=== PATIENT | female | born 1930 | race Caucasian/White ===

== ENCOUNTER 2018-01-05 13:24 | Inpatient (IN) | payer OTHER, BC ==
[~2018-01-05] VITALS: Ht 154.9 cm; Wt 41.5 kg
[2018-01-05 14:01] LABS: HEMATOCRIT 31.8 % (36.0-46.0); HEMOGLOBIN 10.5 G/DL (11.9-15.5); MCH 37.6 PG (29.0-34.0); PLATELET COUNT 165 K/uL (156-360); RBC DIS.WIDTH-CV 15.1 % (11.8-14.6); RBC DIS.WIDTH-SD 63.5 % (39-53); RED BLOOD COUNT 2.79 M/uL (3.80-5.20); WHITE BLOOD COUNT 11.9 K/uL (4.1-10.2)
[2018-01-05 14:07] LABS: INTER. NORMALIZED RATIO 0.9
[2018-01-05 14:09] LABS: CHLORIDE 101 mEq/L (99-109); POTASSIUM 5.1 mEq/L (3.7-5.4); SODIUM 139 mEq/L (136-147)
[2018-01-05 14:10] LABS: PTT 22.5 SEC (25-37)
[2018-01-05 14:11] LABS: GLUCOSE 223 mg/dL (70-99)
[2018-01-05 14:15] LABS: CREATININE 5.5 mg/dL (0.6-1.3); GFR ESTIMATE (CALCULATED) 8 mL/min/
[2018-01-05 14:16] LABS: UREA NITROGEN (BUN) 38 mg/dL (9-23)
[2018-01-05 14:21] LABS: TROP-I INTERPRETATION NEGATIVE; TROPONIN-I 0.05 ng/mL (0.0-0.30)
[2018-01-05 14:54] LABS: PLAT.SUFFICIENCY ADEQUATE
[2018-01-05] MEDS ORDERED: ISOSORBIDE DINI20 MG PO (16:08)
[2018-01-05] MEDS ORDERED: PROTONIX40 MG PO (16:09)
[2018-01-05] MEDS ORDERED: BUMETANIDE2 MG PO (16:09)
[2018-01-05] MEDS ORDERED: CARVEDILOL6.25 MG PO (16:09)
[2018-01-05] MEDS ORDERED: APRESOLINE50 MG PO (16:09)
[2018-01-05] MEDS ORDERED: CALCIUM ACETAT667 MG PO (16:10)
[2018-01-05] MEDS ORDERED: IRON325 M1 PO (16:10)
[2018-01-05] MEDS ORDERED: PRAVACHOL80 MG PO (16:10)
[2018-01-05] MEDS ORDERED: DIALYVITE TABL1 EACH PO (16:10)
[2018-01-05] MEDS ORDERED: MIRALAX17 GM PO (16:10)
[2018-01-05] MEDS ORDERED: CYANOCOBALAM1000 MCG PO (16:11)
[2018-01-05] MEDS ORDERED: ADULT ASPIRIN R81 MG PO (16:11)
[2018-01-05] MEDS ORDERED: VITAMIN D32000 UNI1 PO (16:11)
[2018-01-05] MEDS ORDERED: SENNA8.6 MG PO (16:11)
[2018-01-05] MEDS ORDERED: BUTRANS1 EAC1 TD (16:12)
[2018-01-05] MEDS ORDERED: ARANESP60 MCG/0.3 SC (16:13)
[2018-01-05] MEDS ORDERED: DULCOLAX5 MG PO (16:13)
[2018-01-05] MEDS ORDERED: COMPAZINE10 MG PO (16:13)
[2018-01-05] MEDS ORDERED: FLONASE16 G1 BOTH NARES (16:13)
[2018-01-05] MEDS ORDERED: NITROSTAT0.4 MG SL (16:13)
[2018-01-05 20:46] LABS: TROP-I INTERPRETATION NEGATIVE
[2018-01-05 21:15] VITALS: BP 111/53
[2018-01-06 00:18] VITALS: BP 146/65
[2018-01-06 02:33] LABS: HEMATOCRIT 26.9 % (36.0-46.0); HEMOGLOBIN 8.8 G/DL (11.9-15.5); MCH 36.7 PG (29.0-34.0); MCHC 32.7 G/DL (30.0-36.0); MCV 112.1 FL (83-99); PLATELET COUNT 124 K/uL (156-360); RBC DIS.WIDTH-SD 61.8 % (39-53); WHITE BLOOD COUNT 7.7 K/uL (4.1-10.2)
[2018-01-06 02:43] LABS: CHLORIDE 103 mEq/L (99-109); SODIUM 143 mEq/L (136-147)
[2018-01-06 02:45] LABS: GLUCOSE 85 mg/dL (70-99)
[2018-01-06 02:49] LABS: GFR ESTIMATE (CALCULATED) 14 mL/min/
[2018-01-06 02:50] LABS: UREA NITROGEN (BUN) 20 mg/dL (9-23)
[2018-01-06 02:51] LABS: CREATININE 3.3 mg/dL (0.6-1.3)
[2018-01-06 02:58] LABS: TROP-I INTERPRETATION INDETERMINATE; TROPONIN-I 0.46 ng/mL (0.0-0.30)
[2018-01-06 03:57] VITALS: BP 135/61
[2018-01-06 07:11] VITALS: BP 164/66
[2018-01-06 11:47] LABS: HEPATITIS B SURFACE ANTIGEN Nonreactive
[2018-01-06 11:48] LABS: HEPATITIS B SURFACE ANTIBODY Nonreactive
[2018-01-06 12:11] LABS: STOOL OCCULT BLD 1ST SPECIMEN ND
[2018-01-06 13:49] LABS: TROP-I INTERPRETATION INDETERMINATE; TROPONIN-I 0.37 ng/mL (0.0-0.30)
[2018-01-06 15:34] VITALS: BP 107/54
[2018-01-06 19:51] VITALS: BP 144/58
[2018-01-06 23:13] VITALS: BP 115/54
[2018-01-07 02:58] VITALS: BP 118/58
[2018-01-07 05:55] LABS: MCH 37.7 PG (29.0-34.0); MCHC 33.3 G/DL (30.0-36.0); PLATELET COUNT 134 K/uL (156-360); RBC DIS.WIDTH-CV 14.9 % (11.8-14.6); RBC DIS.WIDTH-SD 62.5 % (39-53); RED BLOOD COUNT 2.39 M/uL (3.80-5.20); WHITE BLOOD COUNT 7.7 K/uL (4.1-10.2)
[2018-01-07 06:13] LABS: CHLORIDE 97 MEQ/L (99-109); CREATININE 3.2 MG/DL (0.6-1.3); GFR ESTIMATE (CALCULATED) 14 mL/min/; GLUCOSE 91 mg/dL (70-99); POTASSIUM 3.9 MEQ/L (3.7-5.4); SODIUM 139 MEQ/L (136-147); UREA NITROGEN (BUN) 22 mg/dL (9-23)
[2018-01-07 07:08] VITALS: BP 139/63
[2018-01-07 09:43] LABS: STOOL OCCULT BLD 1ST SPECIMEN NEGATIVE
[2018-01-07 10:45] VITALS: BP 120/59
[2018-01-07 15:36] VITALS: BP 144/65
[2018-01-07 19:22] VITALS: BP 153/70
[2018-01-07 23:13] VITALS: BP 153/65
[2018-01-08 04:05] VITALS: BP 119/58
[2018-01-08 07:26] VITALS: BP 150/67
[2018-01-08 08:09] LABS: BASOPHIL (%) 0.4 % (0-1); EOSINOPHIL (%) 4.2 % (0-5); EOSINOPHIL COUNT 0.3 K/uL (0-0.3); HEMATOCRIT 26.5 % (36.0-46.0); HEMOGLOBIN 8.8 G/DL (11.9-15.5); IMMATURE GRANULOCYTE (%) 0.4 % (0.0-0.7); LYMPHOCYTE (%) 15.3 % (15-42); LYMPHOCYTE COUNT 1.2 K/uL (1.0-2.8); MCH 37.6 PG (29.0-34.0); MCHC 33.2 G/DL (30.0-36.0); MCV 113.2 FL (83-99); MONOCYTE (%) 6.1 % (3-12); MONOCYTE COUNT 0.5 K/uL (0-0.8); NEUTROPHIL (%) 73.6 % (45-76); NEUTROPHIL COUNT 5.6 K/uL (1.8-6.4); PLATELET COUNT 129 K/uL (156-360); RBC DIS.WIDTH-CV 14.9 % (11.8-14.6); RBC DIS.WIDTH-SD 62.1 % (39-53); RED BLOOD COUNT 2.34 M/uL (3.80-5.20); WHITE BLOOD COUNT 7.5 K/uL (4.1-10.2)
[2018-01-08 08:25] LABS: ALBUMIN 3.3 G/DL (3.2-4.8); CHLORIDE 98 MEQ/L (99-109); POTASSIUM 3.7 MEQ/L (3.7-5.4); SODIUM 136 MEQ/L (136-147)
[2018-01-08 08:33] LABS: GFR ESTIMATE (CALCULATED) 8 mL/min/; PHOSPHORUS 2.6 mg/dL (2.5-4.9)
[2018-01-08 08:51] LABS: CREATININE 5.1 MG/DL (0.6-1.3); GLUCOSE 190 mg/dL (70-99); UREA NITROGEN (BUN) 39 mg/dL (9-23)
[2018-01-08] MEDS ORDERED: RANEXA500 MG PO (15:46)
[2018-01-08 16:28] VITALS: BP 147/70
[2018-01-08 23:31] VITALS: BP 95/47
[2018-01-09 04:27] VITALS: BP 120/59
[2018-01-09 09:31] VITALS: BP 136/73
== END 2018-01-09 12:56 | disposition home health service (06) | DRG 280 ==
LOC: EME 13:24 → 5EAST 16:08 → EDOF 16:08 → ENRESERV 16:09 → 5EAST 19:43
PROVIDERS: Emergency Medicine Emergency Medical Services; Hospitalist; Internal Medicine; Internal Medicine Nephrology
PROC: 5A1D70Z Performance of Urinary Filtration, Intermittent, Less than 6 Hours Per Day (ICD-10-PCS; principal; 2018-01-05)
PROC: 5A09357 Assistance with Respiratory Ventilation, Less than 24 Consecutive Hours, Continuous Positive Airway Pressure (ICD-10-PCS; principal; 2018-01-05)
DX: I13.2 Hypertensive heart and chronic kidney disease with heart failure and with stage 5 chronic kidney disease, or end stage renal disease (principal); I50.43 Acute on chronic combined systolic (congestive) and diastolic (congestive) heart failure; J96.01 Acute respiratory failure with hypoxia; J18.9 Pneumonia, unspecified organism; I21.A1 Myocardial infarction type 2; N18.6 End stage renal disease; E87.5 Hyperkalemia; N25.81 Secondary hyperparathyroidism of renal origin; I27.20 Pulmonary hypertension, unspecified; I08.2 Rheumatic disorders of both aortic and tricuspid valves; M48.54XA Collapsed vertebra, not elsewhere classified, thoracic region, initial encounter for fracture; D63.1 Anemia in chronic kidney disease; I25.10 Atherosclerotic heart disease of native coronary artery without angina pectoris; J98.11 Atelectasis; Z66 Do not resuscitate; Z99.81 Dependence on supplemental oxygen; Z99.2 Dependence on renal dialysis; Z93.3 Colostomy status; Z87.891 Personal history of nicotine dependence; Z87.440 Personal history of urinary (tract) infections; Z79.82 Long term (current) use of aspirin
CPT/HCPCS: 71045; 71250; 80048; 80069; 82272; 82948; 83880; 84484; 85025; 85027; 85610; 85730; 86706; 87081; 87340; 87641; 93005; 93306; 94002; 94799; 99281; 99285; J0692; J0881; J1644